=== PATIENT | female | born 1995 | race Caucasian/White ===

== ENCOUNTER 2024-01-15 21:21 | Emergency (ER) | payer OTHER, SELFPAY ==
[2024-01-15 21:28] VITALS: BP 161/90; PULSE 80; TEMP 36.5; O2SAT 97; BMI 35.4
--- NOTE | 2024-01-15 21:42 | ED.ANIMALBI1 ---
HPI - Animal Bite General Chief Complaint: Animal Bite Stated Complaint: CAT BITE Time Seen by Provider: 01/15/24 21:23 Source: patient Mode of arrival: walk-in Limitations: no limitations History of Present Illness HPI narrative: 28-year-old female presents for cat bite to her left lower leg sustained 2 days ago from her own house. Last tetanus shot was in 2019. LMP yesterday. She had some redness so she came in to get checked, no purulent drainage or fever. Related Data Previous Rx's ?Medication ?Instructions ?Recorded amoxicillin 875 mg-potassium 1 tab PO BID 10 days #20 tabs 01/15/24 clavulanate 125 mg tablet Allergies Allergy/AdvReac Type Severity Reaction Status Date / Time No Known Drug Allergies Allergy Verified 01/15/24 21:28 Review of Systems ROS Narrative A ten point review of systems is negative except as noted above. Exam Narrative Exam Narrative: Nurses note and vital signs reviewed and patient is not hypoxic. General: The patient appears well and in no apparent distress. Patient is resting comfortably on cart. Skin: Warm, dry, no pallor noted. There is no rash noted. Head: Normocephalic, atraumatic Eye: Normal conjunctiva, no drainage Ears, Nose, Mouth, and Throat: oral mucosa is moist. Nares patent. Cardiovascular: Regular Rate and Rhythm Respiratory: Patient is in no distress, no accessory muscle use GI: Soft and nontender Musculoskeletal: Left lower leg anteriorly, inferiorly shows 3 puncture rick. There is minimal erythema surrounding them, no drainage. Neurological: Awake and alert Psychiatric: Cooperative Constitutional Vital Signs, click to edit/add: Last Vital Signs Temp 97.7 F 01/15/24 21:28 Pulse 80 01/15/24 21:28 Resp 18 01/15/24 21:28 BP 161/90 H 01/15/24 21:28 Pulse Ox 97 01/15/24 21:28 O2 Del Method Room Air 01/15/24 21:28 Course Vital Signs Vital signs: Vital Signs Temperature 97.7 F 01/15/24 21:28 Pulse Rate 80 01/15/24 21:28 Respiratory Rate 18 01/15/24 21:28 Blood Pressure 161/90 H 01/15/24 21:28 Pulse Oximetry 97 01/15/24 21:28 Oxygen Delivery Method Room Air 01/15/24 21:28 Temperature 97.7 F 01/15/24 21:28 Pulse Rate 80 01/15/24 21:28 Respiratory Rate 18 01/15/24 21:28 Blood Pressure 161/90 H 01/15/24 21:28 Pulse Oximetry 97 01/15/24 21:28 Oxygen Delivery Method Room Air 01/15/24 21:28 MDM - Animal Bite MDM Narrative Medical decision making narrative: Tetanus is already up-to-date and she is prescribed Augmentin. Treatment diagnosis and follow-up were discussed with the patient. Discharge Plan Discharge Stand Alone Forms: Portal Instructions Chief Complaint: Animal Bite Clinical Impression: Cat bite Patient Disposition: Home, Self-Care Time of Disposition Decision: 21:40 Condition: Good Mode of Transportation: Private Vehicle Prescriptions / Home Meds: New amoxicillin-pot clavulanate 875-125 mg tablet 1 tab PO BID 10 Days Qty: 20 0RF Print Language: Ethiopian Instructions: Animal Bite (ED) Referrals: Physician,Non-Staff, MD [Primary Care Provider] - 1 week
[2024-01-15] MEDS: AMOXICILLIN/POTASSIUM CLAV 1 TAB TABLET PO (22:15)
== END 2024-01-15 22:19 | disposition home or self-care (01) ==
PROVIDERS: Emergency Provider Emergency Medicine; PCP Family Medicine
DX: S81.852A Open bite, left lower leg, initial encounter (principal); W55.01XA Bitten by cat, initial encounter
CPT/HCPCS: 99283